=== PATIENT | female | born 1980 | race Caucasian/White ===

== ENCOUNTER → 2017-01-09 | Outpatient (REF) | payer OTHER ==
[2017-01-09 19:24] LABS: ALBUMIN 3.5 GM/DL (3.2-5.2); ALBUMIN/GLOBULIN RATIO 0.95 (1.00-1.93); ALKALINE PHOSPHATASE 99 U/L (45-117); ALT/SGPT 29 U/L (12-78); ANION GAP 9 MEQ/L (8-16); AST/SGOT 17 U/L (15-37); BILIRUBIN,TOTAL 0.6 MG/DL (0.2-1.0); BLOOD UREA NITROGEN 9 MG/DL (7-18); CALCIUM LEVEL 9.4 MG/DL (8.5-10.1); CARBON DIOXIDE LEVEL 25 MEQ/L (21-32); CHLORIDE LEVEL 107 MEQ/L (98-107); CREATININE FOR GFR 0.79 MG/DL (0.55-1.02); GLOMERULAR FILTRATION RATE > 60.0 (>60); GLUCOSE, FASTING 83 MG/DL (70-105); POTASSIUM SERUM 4.2 MEQ/L (3.5-5.1); SODIUM LEVEL 141 MEQ/L (136-145); TOTAL PROTEIN 7.2 GM/DL (6.4-8.2)
[2017-01-09 19:44] LABS: MEAN CORPUSCULAR HEMOGLOBIN 34.1 pg (27.0-33.0); MEAN CORPUSCULAR HGB CONC 33.3 g/dl (32.0-36.5); MEAN CORPUSCULAR VOLUME 102.3 fl (80.0-96.0); RED CELL DISTRIBUTION WIDTH 13.8 % (11.5-14.5); WHITE BLOOD COUNT 11.2 K/mm3 (4.0-10.0)
== END ==
LOC: M SFHCPLAZ 14:40
PROVIDERS: ATTEND Nurse Practitioner Adult Health
DX: Z00.00 Encounter for general adult medical examination without abnormal findings (principal)

== ENCOUNTER → 2017-09-19 | Outpatient (REF) | payer OTHER | LOC: M SFHCPLAZ 10:40 | DX: R35.0 Frequency of micturition (principal) ==

== ENCOUNTER → 2017-12-16 | Outpatient (CLI) | payer OTHER | LOC: M LRY 10:30 | DX: S99.912A Unspecified injury of left ankle, initial encounter (principal); S59.901A Unspecified injury of right elbow, initial encounter; S69.92XA Unspecified injury of left wrist, hand and finger(s), initial encounter; W19.XXXA Unspecified fall, initial encounter; Y92.89 Other specified places as the place of occurrence of the external cause; Y93.9 Activity, unspecified; Y99.9 Unspecified external cause status ==

== ENCOUNTER → 2018-04-02 | Outpatient (REF) | payer BC ==
[2018-04-02 16:47] LABS: ALBUMIN 3.4 GM/DL (3.2-5.2); ALBUMIN/GLOBULIN RATIO 0.94 (1.00-1.93); ALKALINE PHOSPHATASE 112 U/L (45-117); ALT/SGPT 24 U/L (12-78); ANION GAP 7 MEQ/L (8-16); AST/SGOT 12 U/L (7-37); BILIRUBIN,TOTAL 0.3 MG/DL (0.2-1.0); BLOOD UREA NITROGEN 10 MG/DL (7-18); CALCIUM LEVEL 8.5 MG/DL (8.5-10.1); CARBON DIOXIDE LEVEL 27 MEQ/L (21-32); CHLORIDE LEVEL 109 MEQ/L (98-107); CREATININE FOR GFR 0.76 MG/DL (0.55-1.30); GLOMERULAR FILTRATION RATE > 60.0 (>60); GLUCOSE, FASTING 77 MG/DL (70-100); POTASSIUM SERUM 3.9 MEQ/L (3.5-5.1); SODIUM LEVEL 143 MEQ/L (136-145); THYROID STIMULATING HORMONE 0.927 uIU/ML (0.358-3.740)
== END ==
LOC: M SFHCPLAZ 15:00
DX: Z00.00 Encounter for general adult medical examination without abnormal findings (principal)

== ENCOUNTER 2018-05-28 15:45 | Emergency (ER) | payer BC ==
[~2018-05-28] VITALS: Ht 182.9 cm; Wt 81.4 kg
[2018-05-28] MEDS ORDERED: PANT40TA3 PO (15:52)
[2018-05-28] MEDS ORDERED: IBUP80TA PO (15:52)
[2018-05-28] MEDS ORDERED: METH4PACK PO (15:52)
[2018-05-28] MEDS ORDERED: PROAAER10 INH (15:52)
[2018-05-28] MEDS ORDERED: PERI12LIQ SSP (15:52)
[2018-05-28] MEDS ORDERED: BREO1INH3 INH (15:52)
[2018-05-28] MEDS ORDERED: OXYCODONE-ACE (15:52)
[2018-05-28 16:47] LABS: BASO # 0.1 10^3/uL (0.0-0.2); BASO % 0.5 % (0.0-1.0); EOS # 0.2 10^3/uL (0.0-0.50); EOS % 1.3 % (0.0-3.0); HEMATOCRIT 45.7 % (36.0-47.0); HEMOGLOBIN 15.2 g/dl (12.0-15.5); LYMPH # 4.3 10^3/uL (1.5-4.5); LYMPH % 32.3 % (24.0-44.0); MEAN CORPUSCULAR HEMOGLOBIN 33.5 pg (27.0-33.0); MEAN CORPUSCULAR HGB CONC 33.3 g/dl (32.0-36.5); MEAN CORPUSCULAR VOLUME 100.7 fl (80.0-96.0); MONO # 0.7 10^3/uL (0.0-0.8); MONO % 5.5 % (0.0-5.0); NEUTROPHILS % 59.7 % (36.0-66.0); PLATELET COUNT, AUTOMATED 367 10^3/uL (150-450); RED BLOOD COUNT 4.54 10^6/uL (4.00-5.40); WHITE BLOOD COUNT 13.4 10^3/uL (4.0-10.0)
[2018-05-28] MEDS ORDERED: MORPHINE 2 MG/ML 1ML SYRINGE (J2270) IV ONE (17:00)
[2018-05-28] MEDS ORDERED: NICOTINE 21MG/24HR 1 EA TRANSDERMAL TD ONE (17:00)
--- NOTE | 2018-05-28 17:02 | REP ---
Clinical: Trauma. Technique: AP, lateral, bilateral oblique views of the right ankle. Findings: Comminuted fracture dislocation to the ankle including oblique fracture of the distal fibular metaphysis and suspected posterior malleolar fracture along with dislocation at the ankle mortise and overlying soft tissue swelling. Subtle traumatic diastases at the talonavicular and naviculocuneiform joints is also suggested. No subcutaneous emphysema or radiodense foreign body. Impression: Comminuted fracture dislocation of the ankle. Electronically Signed by Alejandro Crawford MD 05/28/2018 04:53 P
[2018-05-28 17:12] LABS: ALBUMIN 3.8 GM/DL (3.2-5.2); ALT/SGPT 27 U/L (12-78); BILIRUBIN,TOTAL 0.4 MG/DL (0.2-1.0); BLOOD UREA NITROGEN 8 MG/DL (7-18); CALCIUM LEVEL 8.8 MG/DL (8.5-10.1); CARBON DIOXIDE LEVEL 25 MEQ/L (21-32); CHLORIDE LEVEL 104 MEQ/L (98-107); CREATININE FOR GFR 0.75 MG/DL (0.55-1.30); ETHYL ALCOHOL (ETHANOL) 0.135 % (0.000-0.010); GLOMERULAR FILTRATION RATE > 60.0 (>60); GLUCOSE, FASTING 95 MG/DL (70-100); POTASSIUM SERUM 3.7 MEQ/L (3.5-5.1); SODIUM LEVEL 138 MEQ/L (136-145); TOTAL PROTEIN 7.6 GM/DL (6.4-8.2)
[2018-05-28] MEDS ORDERED: methylPREDNISolone INJ 125 MG/2 ML VIAL (J2930) IV ONE (17:30)
[2018-05-28] MEDS ORDERED: diphenhydrAMINE INJ 50MG/ML VIAL (J1200) IV ONE (17:30)
[2018-05-28] MEDS ORDERED: ALEV220T26 PO (17:31)
[2018-05-28] MEDS ORDERED: OXYC1TAB23 PO (17:31)
[2018-05-28] MEDS ORDERED: LIDOCAINE 1% MDV 20ML VIAL IM ONE (18:00)
[2018-05-28] MEDS ORDERED: LIDOCAINE W/EPINEPHRINE 1% 20ML VIAL SC ONE (18:15)
--- NOTE | 2018-05-28 19:03 | REP ---
Right ankle post reduction AP and lateral views: Comparison is the four view acute study performed earlier today. The dislocation of the tibia as been satisfactorily reduced. However, the ankle mortise is widened medially and laterally. There is a fracture of the distal fibula. The distal fracture fragment is angulated laterally. Plaster casting material is superimposed. Electronically Signed by Chai Borden MD 05/28/2018 06:54 P
[2018-05-28] MEDS ORDERED: PERC5TAB12 PO (19:31)
[2018-05-28 19:46] VITALS: BP 147/83
--- NOTE | 2018-05-28 19:53 | REP ---
Clinical: Trauma. Technique: Axial noncontrast images through the right ankle with coronal and sagittal re-formations. Findings: There is an oblique fracture of the distal fibular metaphysis extending to the articular surface with approximately 5 mm of lateral displacement of the fracture fragment. There is a comminuted multipartite fracture involving the posterior malleolus extending to the articular surface. There are small fractured slivers likely from the anterosuperior margin of the talus. There appears to be a nondisplaced fracture involving the anterior superior tip of the calcaneus. Obvious disruption of the ankle joint with surrounding post traumatic soft tissue swelling and infiltration. No obvious open wound or foreign body identified. Impression: Comminuted fracture dislocation of the right ankle. Electronically Signed by Alejandro Crawford MD 05/28/2018 07:45 P
--- NOTE | 2018-05-29 08:36 | ER ---
DATE OF CONSULTATION: 05/28/2018 REASON FOR CONSULTATION: Right ankle fracture dislocation. CONSULTING PHYSICIAN: QUINTON Merrill CHIEF COMPLAINT: Right ankle pain. HISTORY OF PRESENT ILLNESS: Johanna Beckman is a 38-year-old female who was intoxicated earlier today and walking her dog and tripped, sustained a twisting injury to her right ankle noting immediate pain and deformity. She was brought to the emergency room and found to have ankle fracture dislocation. Orthopedics was consulted for further management. The patient denied any antecedent chest pain, headache, nausea or other constitutional symptoms prior to her mechanical fall. She does admit to being intoxicated at the time. PAST MEDICAL HISTORY: Her past medical history is significant for gastroesophageal reflux disease and poor dentition, recently had complete teeth extraction approximately 1 week ago, and asthma. MEDICATIONS: - pantoprazole - rescue inhaler - Percocet for pain for recent tooth extraction ALLERGIES: CLARITHROMYCIN PAST SURGICAL HISTORY: Tooth extraction as noted above. FAMILY HISTORY: Noncontributory. 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 She was a recent pack per day smoker, she is currently trying to quit and currently using nicotine patch. She does drink alcohol on occasions, as per history of present illness, and smokes marijuana but denies other illicit drug use. REVIEW OF SYSTEMS: 14-point review of systems was reviewed and is remarkable for poor dentition and intoxication, as noted above, otherwise unremarkable. PHYSICAL EXAMINATION: Vital signs: Temperature 97.4, heart rate 83, respiratory rate 18, blood pressure 136/90, pulse oximetry 98% on room air. General: This is a well-nourished female, appears older than stated age. In no acute distress. Neurologic: She is awake and oriented to person, place and time. She has intact sensory and motor function in her right lower extremity tibial, sural, saphenous, superficial peroneal, deep peroneal nerve distributions. Cardiovascular: She has a 2+ DP/PT pulses. Brisk capillary refill of all digits of the right lower extremity. Musculoskeletal: Focused physical exam of the right ankle demonstrates obvious visible deformity about the right ankle with posterior displacement of the foot. There is a small superficial abrasion overlying the medial malleolus with no evidence of open wound or drainage. There is maximal tenderness diffusely about the ankle with ecchymosis in the lateral aspect of the ankle. The patient is able to independently flex and extend her toes. RADIOGRAPHY: Plain radiographs of the right ankle demonstrate a bimalleolar fracture dislocation with lateral and posterior malleolar fragment of the right ankle with posterior displacement of the talus. LABORATORY FINDINGS: The patient had a blood alcohol level of 0.135. ASSESSMENT: This is a 38-year-old female who is intoxicated with a right ankle fracture dislocation. PLAN: I discussed with the patient the nature of her injury. Given the nature of her injury, she has a displaced ankle fracture dislocation, I do recommend urgent reduction and splinting. Given that she is intoxicated, I do think that she would not be able to consent for elective surgery; however, implied consent and verbal consent was obtained from the patient for an urgent closed reduction and splinting of the right ankle. PROCEDURE NOTE: After the skin was carefully prepped, I injected 5 mL of 1% lidocaine with epinephrine into the ankle joint using barbotage technique for hematoma block. After sufficient analgesia was obtained, I then performed a closed reduction of the ankle placed her into a well-padded L and U splint. Postreduction radiographs demonstrated concentric reduction of the talus underneath the distal tibia with some residual medial clear space widening of approximately 5 mm, which is acceptable. The patient tolerated the procedure well. POSTPROCEDURE PLAN: The patient be discharged home later today. She was instructed on strict elevation to minimize swelling and will follow up in the office next week for preoperative planning for right ankle open reduction and internal fixation. She stated understanding and agreed with the plan. All questions were answered. I also will obtain a CT prior to discharge to assist in preoperative planning. EMMY
[2018-06-06] MEDS ORDERED: AZO95TAB PO (15:23)
[2018-06-06] MEDS ORDERED: NICO21PAT EXT (15:26)
== END 2018-05-28 19:55 | disposition home or self-care (01) ==
LOC: M ED 15:45
DX: S82.831A Other fracture of upper and lower end of right fibula, initial encounter for closed fracture (principal); S93.04XA Dislocation of right ankle joint, initial encounter; W01.0XXA Fall on same level from slipping, tripping and stumbling without subsequent striking against object, initial encounter; Y93.K1 Activity, walking an animal; Y92.018 Other place in single-family (private) house as the place of occurrence of the external cause; F10.20 Alcohol dependence, uncomplicated; Y90.0 Blood alcohol level of less than 20 mg/100 ml; J45.909 Unspecified asthma, uncomplicated; K21.9 Gastro-esophageal reflux disease without esophagitis; Z79.899 Other long term (current) drug therapy; Z88.1 Allergy status to other antibiotic agents; Z91.018 Allergy to other foods; F17.210 Nicotine dependence, cigarettes, uncomplicated
CPT/HCPCS: 27788; 73600; 73610; 73700; 80053; 85025; 96374; 96375; 99284; G0480; J1200; J2270; J2930

== ENCOUNTER 2018-06-11 10:35 | Day surgery (SDC) | payer BC ==
[~2018-06-11] VITALS: Ht 182.9 cm; Wt 126.1 kg
[~2018-06-11 10:35] MED LIST: ALEV220T26 PO; AZO95TAB PO; BREO1INH3 INH; IBUP80TA PO; LR 1,000 ML IV ONE; METH4PACK PO; NICO21PAT EXT; OXYC1TAB23 PO; OXYCODONE-ACE; PANT40TA3 PO; PERC5TAB12 PO; PERI12LIQ SSP; PROAAER10 INH
[2018-06-11 11:28] LABS: URINE PREG TEST NEGATIVE (NEGATIVE)
[2018-06-11] MEDS ORDERED: DOXY-346 (11:39)
[2018-06-11] MEDS ORDERED: ROCURONIUM BROMIDE 50 MG/5 ML VIAL As Ordered ONE (12:23)
[2018-06-11] MEDS ORDERED: PROPOFOL 200 MG/20 ML VIAL As Ordered ONE ×6 (12:23→15:31)
[2018-06-11] MEDS ORDERED: LIDOCAINE 2% INJ 100 MG/5 ML SDV (FOR ANES.) As Ordered ONE ×2 (12:23→14:44)
[2018-06-11] MEDS ORDERED: MIDAZOLAM INJ 2 MG/2 ML VIAL (J2250) As Ordered ONE (12:24)
[2018-06-11] MEDS ORDERED: fentaNYL 250 MCG/5 ML INJECTION (J3010) As Ordered ONE (12:24)
[2018-06-11] MEDS ORDERED: BUPIVACAINE HCL 0.25% 10 ML VIAL As Ordered ONE (14:51)
[2018-06-11] MEDS ORDERED: KETAMINE HCL 200 MG/20 ML VIAL As Ordered ONE (14:59)
[2018-06-11] MEDS ORDERED: HYDROmorphone HCL 2 MG/ML 1ML VIAL (J1170) As Ordered ONE (15:05)
[2018-06-11] MEDS ORDERED: ONDANSETRON 4MG/2ML VIAL (J2405) As Ordered ONE (15:17)
--- NOTE | 2018-06-11 15:31 | REP ---
Right ankle intraoperative fluoroscopic views: There are a total of 32 intraoperative fluoroscopic views. The final film demonstrates a compression plate and syndesmosis screw stabilizing a fracture of the distal fibula in satisfactory position alignment. Fluoroscopic exposure time is 1 minute and 31 seconds. Fluoroscopic views are performed with the last image hold technology resulting in reduction in radiation. Electronically Signed by Chai Borden MD 06/11/2018 03:23 P
[2018-06-11] MEDS ORDERED: BUPIVACAINE/DEXTROSE 0.75% 2 ML AMP As Ordered ONE (15:32)
[2018-06-11] MEDS: NORCO, ANEXSIA 5/325MG TABLET (HYDROcodone/ACETAMINOPHEN) PO PRN ×2 (16:10→17:15)
[2018-06-11] MEDS ORDERED: fentaNYL 100 MCG/2 ML INJECTION (J3010) IV PRN (16:15)
[2018-06-11] MEDS ORDERED: LR 1,000 ML IV SCH (16:15)
[2018-06-11] MEDS ORDERED: ONDANSETRON 4MG/2ML VIAL (J2405) IV PRN (16:15)
[2018-06-11 16:35] VITALS: BP 136/92
--- NOTE | 2018-06-11 17:02 | REP ---
RIGHT ANKLE, THREE VIEWS: HISTORY: Postoperative. COMPARISON: Intraoperative radiographs 06/11/2018. A plaster cast is present obscuring detail. The patient is status post ORIF of fractures of the distal tibia and fibula. A metal fixation plate and screws are present. The joint space is normal in appearance. IMPRESSION: The patient is status post ORIF of fractures of the distal tibia and fibula. There is anatomic alignment. Electronically Signed by Rory Long MD 06/11/2018 05:08 P
--- NOTE | 2018-06-13 11:48 | RO ---
DATE OF PROCEDURE: 06/11/2018 PREOPERATIVE DIAGNOSIS: Right ankle fracture-dislocation. POSTOPERATIVE DIAGNOSIS: Right ankle fracture-dislocation. PROCEDURE: 1. Open reduction, internal fixation right fibula. 2. Open reduction, internal fixation right syndesmosis. SURGEON: Dr. Ramses Savage BOTTLE CLEANER: QUINTON Saleh ANESTHESIA: Spinal. IV FLUIDS: Lactated Ringer's. ESTIMATED BLOOD LOSS: 5 mL. IMPLANTS: Synthes 5-hole locking distal fibula plate, 2.7 mm locking screws times four, 3.5 mm cortical screws in the plate times two, 3.5 mm syndesmotic screw and a 3.5 mm cortical lag screw. CLOSURE: Nylon. DESCRIPTION OF PROCEDURE: The patient was identified in preoperative holding area. The right leg was marked by myself. She had come into the office the previous day for a skin check. The skin of the ankle was carefully inspected. There were no blisters and there was only mild swelling. She was then brought to the operating room where spinal anesthesia was induced. She was laid supine on a well-padded radiolucent operating room (OR) table. A well-padded tourniquet was applied to the right thigh. She received a pre-scrub with Ultradex. The right leg was then prepped and draped in normal sterile fashion from the toes up to the tourniquet with Chloraprep. She received appropriate IV antibiotics within 1 hour of incision. Prior to incision, a time-out performed per hospital protocol. Simeon Hood was present for the entire procedure and participated in all essential portions procedure. This included patient positioning and draping, assisting with the open reduction, holding retractors, providing traction and rotation of the foot, holding the plate in place to assist with internal fixation and maintaining pressure on the ankle during syndesmotic fixation. The right leg was exsanguinated with an Esmarch bandage and tourniquet inflated 250 mmHg. A longitudinal incision was made a #15 blade over the distal fibula slightly posterior. Sharp dissection down to bone distally more proximal the incision was more superficial and then I spread with Metzenbaum scissors. Fracture was identified. Hematoma was evacuated and irrigated. A fresh #15 blade used to release periosteum off the fibula at the fracture site. The proximal fibular shaft had actually skewered and impacted into the distal tibia posterior malleolar fragment. A lobster claw reduction forceps was used to grasp the proximal fibula and with traction by Gustavo distally we were able to disimpact the fibula. Then used a pointed reduction forceps to obtain a provisional open reduction. #15 blade was used to clear soft tissue off of the fracture site. Again, Gustavo was instrumental with performing the open reduction. This was a highly unstable fracture pattern. Point of reduction forceps were used to obtain an anatomical open reduction. I then placed a 3.5 mm cortical lag screw using lag technique. There was fantastic fixation on the lag screw. I was able to remove all clamps and there was no loss of reduction. AP, lateral and mortis views were then obtained with a large C-arm showing anatomic reduction of the fibula and no significant widening of the clear space. I then selected a 5-hole distal fibula locking plate and secured this distally with a 2.7 mm cortical screw proximally. This was secured with a 3.5 mm cortical screw. Repeat x-rays with the C-arm were obtained and I repositioned the 3.5 cortical screws so the plate was sitting more centrally on the fibula proximally. I then proceeded to place a total of four 2.7 mm locking screws distally and ultimately removed 2.7 cortical screw. Proximally, I placed 3.5 mm cortical screws through the two most proximal holes and then obtained repeat x-rays showing anatomic reduction and no widening of the clear space. I did perform an external rotation stress test and there was some widening of the medial clear space, which was not surprising based on her preoperative imaging and highly unstable fracture pattern. I therefore elected to perform open reduction, internal fixation of the right syndesmosis. Initially a clamp was used to reduce the syndesmosis. However, this was felt to over reduce it and so I had Gustavo just use manual compression directly on the fibula and this closed things down nicely. The ankle is in neutral dorsiflexion as I drilled for a 3.5 mm screw. The screw was placed and had four cortices of fixation. A large C-arm was used to confirm that the screw was through the fibula and tibia. The medial clear space was nicely closed down, however not over reduced. Final AP margin lateral views were obtained showing excellent reduction and hardware position. The incision was then extensively irrigated with normal saline. I was able to close periosteum over the plate and then separately close the subcuticular with #2-0 and #3-0 Vicryl and a running #3-0 nylon. I injected 10 mL of the 0.25% Marcaine without epinephrine for local anesthetic. Tourniquet was let down 116 minutes with excellent reperfusion. A sterile dressing was applied. She was then placed into a very well-padded plaster splint with both sugar-tong and posterior slabs. She was transferred to the postanesthesia care unit (PACU) in stable condition. All counts correct times two. Complications none. The patient is strictly non-weightbearing on the right lower extremity. She knows this will be for 12 weeks due to syndesmotic fixation. She will have full dose aspirin for deep venous thrombosis (DVT) prophylaxis. Postoperative x-rays were obtained in the PACU showing excellent maintained reduction and hardware position.
== END 2018-06-11 18:50 | disposition home or self-care (01) ==
LOC: M SDC 10:35
PROVIDERS: ATTEND Orthopaedic Surgery
DX: S82.61XA Displaced fracture of lateral malleolus of right fibula, initial encounter for closed fracture (principal); X58.XXXA Exposure to other specified factors, initial encounter; Y92.89 Other specified places as the place of occurrence of the external cause; Y93.9 Activity, unspecified; Y99.9 Unspecified external cause status; K21.9 Gastro-esophageal reflux disease without esophagitis; J45.909 Unspecified asthma, uncomplicated; Z79.899 Other long term (current) drug therapy; Z79.51 Long term (current) use of inhaled steroids; Z88.1 Allergy status to other antibiotic agents; Z87.891 Personal history of nicotine dependence
CPT/HCPCS: 27792; 27829; 73610; 84703; C1713; J0690; J1170; J2250; J2405; J3010

== ENCOUNTER → 2020-11-23 | Outpatient (REF) | payer BC ==
[~2020-11-23] MED LIST changes: +DOXY-346; -LR 1,000 ML IV ONE; +PANT40TA29 PO; -PANT40TA3 PO
== END ==
LOC: M SFHCPLAZ 13:14
PROVIDERS: ATTEND Physician Assistant
DX: R30.0 Dysuria (principal)

== ENCOUNTER → 2020-12-01 | Outpatient (CLI) | payer BC ==
[2020-12-01 14:18] LABS: HEMOGLOBIN A1c 5.3 %
[2020-12-01 14:27] LABS: ALBUMIN 3.9 GM/DL (3.2-5.2); ALT/SGPT 37 U/L (12-78); BILIRUBIN,TOTAL 0.7 MG/DL (0.2-1.0); BLOOD UREA NITROGEN 11 MG/DL (7-18); CALCIUM LEVEL 9.6 MG/DL (8.5-10.1); CARBON DIOXIDE LEVEL 28 MEQ/L (21-32); CHLORIDE LEVEL 104 MEQ/L (98-107); CHOLESTEROL LEVEL 208 MG/DL (<200); CHOLESTEROL RISK RATIO 3.714 (<5); CREATININE FOR GFR 0.72 MG/DL (0.55-1.30); GLOMERULAR FILTRATION RATE > 60.0 (>58); GLUCOSE, FASTING 90 MG/DL (70-100); HDL CHOLESTEROL 56 MG/DL (>40); LDL CHOLESTEROL 120 MG/DL (<100); NON-HDL-C 152 MG/DL; POTASSIUM SERUM 4.3 MEQ/L (3.5-5.1); SODIUM LEVEL 139 MEQ/L (136-145); TOTAL PROTEIN 7.8 GM/DL (6.4-8.2); TRIGLYCERIDES LEVEL 158 MG/DL (<150)
== END ==
LOC: M PLALAB 10:54
PROVIDERS: ATTEND Nurse Practitioner Adult Health
DX: Z13.220 Encounter for screening for lipoid disorders (principal); Z13.1 Encounter for screening for diabetes mellitus; I10 Essential (primary) hypertension; R68.2 Dry mouth, unspecified

== ENCOUNTER → 2021-06-07 | Outpatient (CLI) | payer BC | LOC: M WHC 12:33 | PROVIDERS: ATTEND Nurse Practitioner Adult Health | DX: Z12.31 Encounter for screening mammogram for malignant neoplasm of breast (principal) ==

== ENCOUNTER → 2021-11-16 | Outpatient (CLI) | payer BC ==
[~2021-11-16] MED LIST changes: +ISOVUE-300 61% 50ML VIAL As Ordered ONE; +LIDOCAINE 1% MDV 20ML VIAL As Ordered ONE; +methylPREDNISolone SUSP 40MG/ML 1ML VIAL (DEPO MEDROL) As Ordered ONE
== END ==
LOC: M RADPRO 15:04
PROVIDERS: ATTEND Physician Assistant
DX: M16.12 Unilateral primary osteoarthritis, left hip (principal)
CPT/HCPCS: 20610; 76000; J1030; Q9967

== ENCOUNTER → 2022-02-09 | Outpatient (CLI) | payer BC ==
[~2022-02-09] MED LIST changes: -ISOVUE-300 61% 50ML VIAL As Ordered ONE; -LIDOCAINE 1% MDV 20ML VIAL As Ordered ONE; -methylPREDNISolone SUSP 40MG/ML 1ML VIAL (DEPO MEDROL) As Ordered ONE
[2022-02-09 11:16] LABS: BASO # 0.1 10^3/uL (0.0-0.2); BASO % 0.9 % (0.0-1.0); EOS # 0.2 10^3/uL (0.0-0.5); EOS % 2.8 % (0.0-3.0); HEMATOCRIT 42.7 % (36.0-47.0); HEMOGLOBIN 14.2 g/dl (12.0-15.5); LYMPH # 2.2 10^3/uL (1.5-5.0); LYMPH % 28.1 % (24.0-44.0); MEAN CORPUSCULAR HEMOGLOBIN 31.8 pg (27.0-33.0); MEAN CORPUSCULAR HGB CONC 33.3 g/dl (32.0-36.5); MEAN CORPUSCULAR VOLUME 95.5 fl (80.0-96.0); MONO # 0.6 10^3/uL (0.0-0.8); MONO % 7.8 % (2.0-8.0); NEUTROPHILS # 4.7 10^3/uL (1.5-8.5); PLATELET COUNT, AUTOMATED 356 10^3/uL (150-450); RED BLOOD COUNT 4.47 10^6/uL (4.00-5.40); WHITE BLOOD COUNT 7.8 10^3/uL (4.0-10.0)
[2022-02-09 11:57] LABS: C REACTIVE PROTEIN QUANTITATIV 1.03 MG/DL (0.00-0.30); RHEUMATOID FACTOR QUANT < 10.0 IU/ML (<15.0)
[2022-02-09 12:02] LABS: ERYTHROCYTE SEDIMENTATION RATE 13 mm/hr (0-20)
[2022-02-10 13:08] LABS: ANTI DOUBLE STRAND-DNA AB 19 IU/mL (0-9); ANTINUCLEAR ANTIBODIES DIRECT Positive (Negative); RNP ANTIBODIES 0.2 AI (0.0-0.9); SJOGREN'S ANTI SS-B <0.2 AI (0.0-0.9); SMITH ANTIBODIES <0.2 AI (0.0-0.9)
== END ==
LOC: M PLALAB 09:33
PROVIDERS: ATTEND Orthopaedic Surgery
DX: M23.41 Loose body in knee, right knee (principal)

== ENCOUNTER → 2022-05-29 | Outpatient (CLI) | payer BC | LOC: M PLAIMG 14:11 | PROVIDERS: ATTEND Physician Assistant | DX: M16.0 Bilateral primary osteoarthritis of hip (principal); M25.552 Pain in left hip ==

== ENCOUNTER → 2022-08-21 | Outpatient (CLI) | payer BC | LOC: M PLAIMG 09:51 | PROVIDERS: ATTEND Physician Assistant | DX: R05.3 Chronic cough (principal) ==

== ENCOUNTER → 2022-09-08 | Outpatient (REF) | payer BC | LOC: M SFHCPLAZ 19:26 | PROVIDERS: ATTEND Family Medicine | DX: I10 Essential (primary) hypertension (principal); Z53.20 Procedure and treatment not carried out because of patient's decision for unspecified reasons ==

== ENCOUNTER → 2022-09-15 | Outpatient (CLI) | payer BC ==
[2022-09-15 12:58] LABS: HEMATOCRIT 45.3 % (36.0-47.0); HEMOGLOBIN 15.3 g/dl (12.0-15.5); MEAN CORPUSCULAR HEMOGLOBIN 32.2 pg (27.0-33.0); MEAN CORPUSCULAR HGB CONC 33.8 g/dl (32.0-36.5); MEAN CORPUSCULAR VOLUME 95.4 fl (80.0-96.0); PLATELET COUNT, AUTOMATED 333 10^3/uL (150-450); RED BLOOD COUNT 4.75 10^6/uL (4.00-5.40); WHITE BLOOD COUNT 11.7 10^3/uL (4.0-10.0)
[2022-09-15 13:05] LABS: ERYTHROCYTE SEDIMENTATION RATE 33 mm/hr (0-20)
[2022-09-15 13:08] LABS: INR 0.84; PROTHROMBIN TIME 11.7 SECONDS (12.5-14.5)
[2022-09-15 13:21] LABS: ALBUMIN 3.5 G/DL (3.2-5.2); ALKALINE PHOSPHATASE 90 U/L (46-116); ALT/SGPT 17 U/L (7.0-40); AST/SGOT 18 U/L (<34); BILIRUBIN,TOTAL 0.6 MG/DL (0.3-1.2); BLOOD UREA NITROGEN 14 MG/DL (9-23); CALCIUM LEVEL 9.5 MG/DL (8.5-10.1); CARBON DIOXIDE LEVEL 25 MMOL/L (20-31); CHLORIDE LEVEL 106 MMOL/L (98-107); CREATININE FOR GFR 0.64 MG/DL (0.55-1.30); GLOMERULAR FILTRATION RATE > 60.0 (>58); GLUCOSE, FASTING 92 MG/DL (60-100); POTASSIUM SERUM 4.2 MMOL/L (3.5-5.1); SODIUM LEVEL 139 MMOL/L (136-145)
== END ==
LOC: M LAB 11:20
PROVIDERS: ATTEND Orthopaedic Surgery
DX: Z01.818 Encounter for other preprocedural examination (principal); M16.12 Unilateral primary osteoarthritis, left hip

== ENCOUNTER → 2022-10-30 | Outpatient (CLI) | payer BC | LOC: M OUTALCOH 07:39 | PROVIDERS: ATTEND Psychiatry & Neurology Psychiatry | DX: Z03.89 Encounter for observation for other suspected diseases and conditions ruled out (principal) ==

== ENCOUNTER → 2022-11-03 | Outpatient (CLI) | payer BC | LOC: M OUTALCOH 08:45 | PROVIDERS: ATTEND Psychiatry & Neurology Psychiatry | DX: Z03.89 Encounter for observation for other suspected diseases and conditions ruled out (principal) ==

== ENCOUNTER → 2022-11-03 | Outpatient (REF) | payer BC | LOC: M PLALAB 13:29 | PROVIDERS: ATTEND Psychiatry & Neurology Psychiatry | DX: Z01.89 Encounter for other specified special examinations (principal) ==

== ENCOUNTER 2022-11-23 16:00 | Outpatient (RCR) | payer BC | END 2022-11-27 | LOC: M OUTALCOH 16:00 | PROVIDERS: ATTEND Psychiatry & Neurology Psychiatry | DX: F10.20 Alcohol dependence, uncomplicated (principal); F12.10 Cannabis abuse, uncomplicated; Z72.0 Tobacco use ==

== ENCOUNTER 2022-12-18 12:43 | Emergency (ER) | payer BC ==
[~2022-12-18] VITALS: Ht 182.9 cm; Wt 96.0 kg
[2022-12-18 12:44] VITALS: BP 151/87; TEMP 97.7; O2SAT 96
== END 2022-12-18 16:58 | disposition home or self-care (01) ==
LOC: M ED 12:43
DX: R22.41 Localized swelling, mass and lump, right lower limb (principal); I10 Essential (primary) hypertension; K21.9 Gastro-esophageal reflux disease without esophagitis; J45.909 Unspecified asthma, uncomplicated; F17.200 Nicotine dependence, unspecified, uncomplicated; Z79.52 Long term (current) use of systemic steroids; Z79.1 Long term (current) use of non-steroidal anti-inflammatories (NSAID); Z79.899 Other long term (current) drug therapy

== ENCOUNTER → 2022-12-28 | Outpatient (RCR) | payer BC | LOC: M OUTALCOH 11-30 16:00 | PROVIDERS: ATTEND Psychiatry & Neurology Psychiatry | DX: F10.20 Alcohol dependence, uncomplicated (principal); F12.10 Cannabis abuse, uncomplicated; Z72.0 Tobacco use ==

== ENCOUNTER → 2023-06-11 | Outpatient (CLI) | payer BC, SELFPAY ==
[2023-06-11 16:15] LABS: ALBUMIN 3.6 G/DL (3.2-5.2); ALKALINE PHOSPHATASE 76 U/L (46-116); ALT/SGPT 11 U/L (7.0-40); AST/SGOT < 8 U/L (<34); BILIRUBIN,TOTAL 0.3 MG/DL (0.3-1.2); BLOOD UREA NITROGEN 20 MG/DL (9-23); CALCIUM LEVEL 9.5 MG/DL (8.5-10.1); CARBON DIOXIDE LEVEL 30 MMOL/L (20-31); CHLORIDE LEVEL 105 MMOL/L (98-107); COMPLEMENT C3 129.2 MG/DL (90.0-170.0); COMPLEMENT C4 29.4 MG/DL (12-36); CREATININE FOR GFR 0.62 MG/DL (0.55-1.30); GLOMERULAR FILTRATION RATE > 60.0 (>58); GLUCOSE, FASTING 85 MG/DL (60-100); POTASSIUM SERUM 4.8 MMOL/L (3.5-5.1); SODIUM LEVEL 139 MMOL/L (136-145); TOTAL PROTEIN 7.2 G/DL (5.7-8.2)
[2023-06-11 16:16] LABS: THYROID STIMULATING HORMONE 0.668 uIU/ML (0.55-4.78)
[2023-06-11 16:17] LABS: BASO # 0.1 10^3/uL (0.0-0.2); BASO % 0.5 % (0.0-1.0); EOS # 0.1 10^3/uL (0.0-0.5); EOS % 0.9 % (0.0-3.0); HEMATOCRIT 42.7 % (36.0-47.0); HEMOGLOBIN 13.5 g/dl (12.0-15.5); LYMPH # 2.4 10^3/uL (1.5-5.0); LYMPH % 19.1 % (24.0-44.0); MEAN CORPUSCULAR HGB CONC 31.6 g/dl (32.0-36.5); MEAN CORPUSCULAR VOLUME 94.9 fl (80.0-96.0); MONO # 0.7 10^3/uL (0.0-0.8); MONO % 5.8 % (2.0-8.0); NEUTROPHILS # 9.4 10^3/uL (1.5-8.5); NEUTROPHILS % 73.2 % (36.0-66.0); PLATELET COUNT, AUTOMATED 408 10^3/uL (150-450); THYROID PEROXIDASE ANTIBODY 38 U/ML (<60.0); VITAMIN B12 LEVEL 383 PG/ML (211-911); WHITE BLOOD COUNT 12.8 10^3/uL (4.0-10.0)
[2023-06-11 16:32] LABS: HEMOGLOBIN A1c 5.4 % (4.0-6.0)
[2023-06-11 16:33] LABS: INR 0.88; PROTHROMBIN TIME 11.7 SECONDS (12.5-14.5)
[2023-06-11 16:34] LABS: PARTIAL THROMBOPLASTIN TIME 27.7 SECONDS (24.8-34.2)
== END ==
LOC: M PLALAB 12:48
PROVIDERS: ATTEND Family Medicine
DX: I10 Essential (primary) hypertension (principal)

== ENCOUNTER → 2024-03-03 | Outpatient (CLI) | payer OTHER ==
[2024-03-03 12:25] LABS: HEMATOCRIT 45.8 % (36.0-47.0); HEMOGLOBIN 15.1 g/dl (12.0-15.5); MEAN CORPUSCULAR HEMOGLOBIN 30.8 pg (27.0-33.0); MEAN CORPUSCULAR VOLUME 93.3 fl (80.0-96.0); PLATELET COUNT, AUTOMATED 328 10^3/uL (150-450); RED BLOOD COUNT 4.91 10^6/uL (4.00-5.40); WHITE BLOOD COUNT 6.9 10^3/uL (4.0-10.0)
[2024-03-03 12:36] LABS: INR 0.82; PROTHROMBIN TIME 11.7 SECONDS (12.5-14.5)
[2024-03-03 12:43] LABS: ERYTHROCYTE SEDIMENTATION RATE 22 mm/hr (0-20)
[2024-03-03 12:49] LABS: ALKALINE PHOSPHATASE 89 U/L (35-104); ALT/SGPT 20 U/L (7.0-40); AST/SGOT 19 U/L (<34); BILIRUBIN,TOTAL 0.5 MG/DL (0.3-1.2); BLOOD UREA NITROGEN 11 MG/DL (9-23); CALCIUM LEVEL 10.1 MG/DL (8.5-10.1); CARBON DIOXIDE LEVEL 27 MMOL/L (20-31); CHLORIDE LEVEL 104 MMOL/L (98-107); GLOMERULAR FILTRATION RATE > 60.0 (>58); GLUCOSE, FASTING 69 MG/DL (60-100); POTASSIUM SERUM 4.2 MMOL/L (3.5-5.1); SODIUM LEVEL 141 MMOL/L (136-145); TOTAL PROTEIN 7.8 G/DL (5.7-8.2)
== END ==
LOC: M RAD 11:06
PROVIDERS: ATTEND Orthopaedic Surgery
DX: Z01.818 Encounter for other preprocedural examination (principal)

== ENCOUNTER → 2024-04-17 | Outpatient (REF) | payer OTHER | LOC: M SFHCPLAZ 15:03 | PROVIDERS: ATTEND Physician Assistant Medical | DX: R30.0 Dysuria (principal) ==

== ENCOUNTER → 2024-08-28 | Outpatient (REF) | payer OTHER | LOC: M LAB REF 15:08 | PROVIDERS: ATTEND Nurse Practitioner Adult Health | DX: R09.81 Nasal congestion (principal) ==